=== PATIENT | male | born 1990 | race Caucasian/White ===

== ENCOUNTER 2016-10-27 11:12 | Emergency (ER) | payer OTHER ==
[~2016-10-27] VITALS: Wt 69.3 kg
--- NOTE | 2016-10-27 12:48 | RADRPT ---
PROCEDURE: US Abdomen (right upper quadrant). CLINICAL INDICATION: Abdominal pain. TECHNIQUE: Multiple real-time longitudinal and transverse images of the right upper quadrant of th e abdomen were acquired utilizing a curved array transducer. Images were reviewed on a high-resoluti on PACS workstation. COMPARISON: None FINDINGS: The liver is normal in size but increased in echogenicity indicative of fatty infiltration without f ocal mass or intrahepatic biliary dilatation. The gallbladder is normal. There is no pericholecyst ic fluid or gallbladder wall thickening or gallstones. No intra or extrahepatic biliary dilatation is seen. The common bile duct measures 3.9 mm in maximal dimension. The visualized portions of the pancreas demonstrate increased echogenicity.. No free fluid is identified. The right kidney measures 10.3 cm in length. There is normal echogenicity within the right kidney. There is no perinephric fluid collection. No hydronephrosis, mass, or calculus is seen. IMPRESSION: 1. Hepatic steatosis. 2. Increase pancreatic echogenicity, correlate clinically/ with pancreatic enzymes, to exclude acut e pancreatitis. RPTAT: QQ .Naz Elizabeth MD, Date Time Electronically viewed and signed by .Naz Elizabeth MD, on 10/27/2016 12:47 .N/
[2016-10-27 14:00] LABS: BASOPHILS % 0.3 % (0.0-2.0); EOSINOPHILS # 0.1 10^3/ul (0.0-0.5); EOSINOPHILS % 0.4 % (0.0-7.0); HEMATOCRIT 49.6 % (42.0-52.0); HEMOGLOBIN 17.2 g/dl (14.0-18.0); LYMPHOCYTES # 2.1 10^3/ul (0.8-2.9); LYMPHOCYTES % 16.1 % (15.0-51.0); MEAN CORPUSCULAR HEMOGLOBIN 31.9 pg (29.0-33.0); MEAN CORPUSCULAR HGB CONC 34.6 g/dl (32.0-37.0); MEAN CORPUSCULAR VOLUME 92.4 fl (82.0-101.0); MEAN PLATELET VOLUME 8.3 fl (7.4-10.4); MONOCYTE # 0.8 10^3/ul (0.3-0.9); MONOCYTES % 5.7 % (0.0-11.0); NEUTROPHIL # 10.3 10^3/ul (1.6-7.5); NEUTROPHILS % 77.5 % (39.0-77.0); PLATELET COUNT 300 10^3/UL (140-440); RED BLOOD COUNT 5.37 10^6/ul (4.70-6.10); RED CELL DISTRIBUTION WIDTH 11.9 % (11.5-14.5); UNCORRECTED WBC 13.4 10^3/ul (4.8-10.8); WHITE BLOOD COUNT 13.4 10^3/ul (4.8-10.8)
[2016-10-27 14:03] LABS: CONDITION 1
[2016-10-27 14:15] LABS: ALBUMIN 5.1 g/dl (3.3-4.9)
[2016-10-27 14:16] LABS: POTASSIUM 4.4 mmol/L (3.5-5.1)
[2016-10-27 14:18] LABS: ALBUMIN/GLOBULIN RATIO 1.64; BILIRUBIN,INDIRECT 0.7 mg/dl (0-1.1); BILIRUBIN,TOTAL 0.7 mg/dl (0.2-1.3); CREATININE 0.82 mg/dl (0.61-1.24); TOTAL PROTEIN 8.2 g/dl (6.1-8.1)
[2016-10-27] MEDS ORDERED: NAPR-688 PO (14:55)
[2016-10-27 15:05] VITALS: RESP 18
--- NOTE | 2016-11-04 05:33 | ERD ---
DATE OF SERVICE: 10/27/2016 HISTORY OF PRESENT ILLNESS: This 26-year-old male presents with epigastric abdominal pain described as intermittent, sharp epigastric and right upper quadrant abdominal pain that has been present for the last 2 days. He denies nausea, vomiting, diarrhea, or constipation. He denies fevers and chil ls. REVIEW OF SYSTEMS: A 10-point review of systems is negative except as in the HPI. PAST MEDICAL HISTORY: Negative. PAST SURGICAL HISTORY: Negative. FAMILY HISTORY: Noncontributory to abdominal pathologies. SOCIAL HISTORY: The patient occasionally drinks socially and does smoke cigarettes occasionally. PHYSICAL EXAMINATION: VITAL SIGNS: Temperature 96.8, pulse 95, blood pressure 144/78, respirations 17, oxygen saturation 99% on room air. GENERAL: No acute distress. HEENT: Normocephalic, atraumatic. NECK: Supple, no JVD. CARDIOVASCULAR: Regular rate and rhythm, no murmurs. LUNGS: Clear to auscultation bilaterally. ABDOMEN: Very mild right upper quadrant tenderness without guarding or rebound. No distention, bow el sounds present in all 4 quadrants. NEUROLOGIC: Alert and oriented x3 with no focal deficits. EXTREMITIES: No cyanosis, clubbing, or edema. SKIN: No rashes or other lesions. LABORATORY AND DIAGNOSTIC DATA: BMP is within normal limits. Liver function tests are within arturo l limits except for high albumin of 5.1. Lipase is within normal limits at 25. CBC significant for a very mildly elevated white blood cell count of 13.4. No anemia. IMAGING INTERPRETATION: Ultrasound right upper quadrant interpretation: Hepatic steatosis. No gal lstones. No signs of gallbladder obstruction such as pericholecystic fluid or common bile duct dila tion. EMERGENCY DEPARTMENT COURSE AND MEDICAL DECISION MAKING: The patient's pain dissipated on its own w hile in the emergency room. He has hepatic steatosis which would explain his symptoms. He is cauti oned against drinking alcohol and told that he needs to see his primary care doctor to obtain a refe rral for a graphic design intern or fueler in order to address his hepatic steatosis. Also, disc harging him with naproxen for pain. Return precautions to the ER for any severe pain or any other c oncerning symptoms. DISCHARGE DIAGNOSES: 1. Acute ____. 2. Hepatic steatosis. DISPOSITION: Home in stable condition. Dictated By: JUAN PABLO TAY/NTS Conf#: [id number] DID#: [id number]
== END 2016-10-27 15:06 | disposition home or self-care (01) ==
LOC: FTE 11:12
DX: K76.0 Fatty (change of) liver, not elsewhere classified (principal)
CPT/HCPCS: 76705; 80053; 83690; 85025; Z7502

== ENCOUNTER 2017-10-05 13:18 | Emergency (ER) | END 2017-10-05 15:56 | disposition home or self-care (01) ==